=== PATIENT | male | born 1950 | race Caucasian/White ===

== ENCOUNTER → 2016-07-19 | Outpatient (CLI) | payer OTHER | END | disposition home or self-care (01) | LOC: PCVCCLINIC 14:30 | PROVIDERS: ATTEND Internal Medicine | DX: I48.91 Unspecified atrial fibrillation (principal) | CPT/HCPCS: 36415 ==

== ENCOUNTER → 2017-07-13 | Outpatient (CLI) | payer OTHER ==
--- NOTE | 2017-07-14 09:50 | PCVCIMAG ---
APPROVED REPORT Study performed: 07/13/2017 11:30:18 EXAM: Comprehensive 2D, Doppler, and color-flow Echocardiogram Patient Location: Echo lab Room #: 2Status: routine BSA: 2.57 HR: 65 bpmBP: 126/66 mmHg Rhythm: Atrial Fibrillation Other Information Study Quality: Adequate Risk Factors: Cardiac Risk Factors: Hyperlipidemia Indications Congestive Heart Failure Atrial Fibrillation Cardiomyopathy 2D Dimensions LVEF(%): 52.27 (>50%) IVSd: 9.70 (7-11mm)LVOT Diam: 23.78 (18-24mm) LVDd: 52.83 mm PWd: 9.61 (7-11mm)Ascending Ao: 32.00 (22-36mm) LVDs: 38.55 (25-40mm) Left Atrium: 47.74 (27-40mm) Aortic Root: 23.06 mm LV Single Plane 4CH: 69.22 % LV Single Plane 2CH: 57.93 %Valdez's LVEF: 63.58 % Biplane EF: 62.8 % Volumes Left Atrial Volume (Systole) Single Plane 4CH: 63.92 mLSingle Plane 2CH: 95.13 mL Biplane LA Volume: 82.00 mLLA ESV Index: 32.00 mL/m2 Aortic Valve AoV Peak Alfonso.: 1.66 m/s AO Peak Gr.: 12.74 mmHgLVOT Max P.76 mmHg LVOT Max V: 0.92 m/s CORRINE Vmax: 2.45 cm2 Mitral Valve MV E Max Alfonso.: 1.21 m/s MV PHT: 42.10 ms MVA (PHT): 5.23 cm2 Pulmonary Valve PV Peak Alfonso.: 0.77 m/sPV Peak Gr.: 2.35 mmHg Pulmonary Vein P Vein S: 0.18 m/s Tricuspid Valve TR Peak Alfonso.: 2.50 m/s TR Peak Gr.: 25.05 mmHg TV Vmax: 0.70 m/sPA Pressure: 32.00 mmHg Left Ventricle The left ventricle is normal size. There is normal LV segmental wall motion. Borderline concentric left ventricular hypertrophy. Left ventricular systolic function is normal. LVEF is 60-65%. This study is not technically sufficient to allow evaluation of the LV diastolic function due to atrial fibrillation. Right Ventricle The right ventricle is normal size. The right ventricular systolic function is normal. Atria Left atrium is at the upper limits of normal. The right atrium size is normal. Aortic Valve Aortic valve is trileaflet. Aortic valve leaflets are sclerotic but open well. No aortic regurgitation is present. There is no aortic valvular stenosis. Mitral Valve The mitral valve is normal in structure. Mild to moderate mitral regurgitation. No evidence of mitral valve stenosis. Tricuspid Valve The tricuspid valve is normal in structure. Mild tricuspid regurgitation with a PA pressure of 32 mmHg. Mild pulmonary hypertension. Pulmonic Valve The pulmonary valve is normal in structure. There is no pulmonic valvular regurgitation. Great Vessels The aortic root is normal in size. The ascending aorta is normal in size. IVC is normal in size and collapses with >50% inspiration Pericardium There is no pericardial effusion. There is no pleural effusion. <Conclusion> The left ventricle is normal size. LVEF is 60-65%. Left atrium is at the upper limits of normal. Aortic valve is trileaflet. Aortic valve leaflets are sclerotic but open well. No aortic regurgitation is present. The mitral valve is normal in structure. Mild to moderate mitral regurgitation. The tricuspid valve is normal in structure. Mild tricuspid regurgitation with a PA pressure of 32 mmHg. Mild pulmonary hypertension. There is no pericardial effusion. There is no pleural effusion.
== END | disposition home or self-care (01) ==
LOC: PCVCIMAG 11:54
PROVIDERS: ATTEND Internal Medicine
DX: I50.9 Heart failure, unspecified (principal); I08.1 Rheumatic disorders of both mitral and tricuspid valves; I48.91 Unspecified atrial fibrillation; I42.9 Cardiomyopathy, unspecified; E78.5 Hyperlipidemia, unspecified; I27.20 Pulmonary hypertension, unspecified
CPT/HCPCS: 93306

== ENCOUNTER → 2018-06-04 | Outpatient (CLI) | payer OTHER | END | disposition home or self-care (01) | LOC: PCVCCLINIC 11:22 | PROVIDERS: ATTEND Internal Medicine | DX: E78.5 Hyperlipidemia, unspecified (principal); I48.91 Unspecified atrial fibrillation; I42.9 Cardiomyopathy, unspecified; F17.210 Nicotine dependence, cigarettes, uncomplicated; Z88.8 Allergy status to other drugs, medicaments and biological substances | CPT/HCPCS: 80061 ==

== ENCOUNTER → 2018-06-05 | Outpatient (CLI) | payer OTHER ==
--- NOTE | 2018-06-05 14:39 | PCVCIMAG ---
APPROVED REPORT Study performed: 06/05/2018 08:21:17 EXAM: Comprehensive 2D, Doppler, and color-flow Echocardiogram Patient Location: Echo lab Room #: 2Status: routine BSA: 2.57 HR: 74 bpmBP: 110/70 mmHg Rhythm: Atrial Fibrillation Other Information Study Quality: Good Risk Factors: Cardiac Risk Factors: Hyperlipidemia, Smoking Indications Atrial Fibrillation Cardiomyopathy 2D Dimensions IVSd: 8.99 (7-11mm)LVOT Diam: 23.83 (18-24mm) LVDd: 45.54 mm PWd: 8.23 (7-11mm)Ascending Ao: 34.52 (22-36mm) LVDs: 27.44 (25-40mm) Left Atrium: 39.01 (27-40mm) Aortic Root: 27.10 mm LV Single Plane 4CH: 55.96 % LV Single Plane 2CH: 54.41 % Biplane EF: 55.5 % Volumes Left Atrial Volume (Systole) Single Plane 4CH: 85.86 mLSingle Plane 2CH: 93.59 mL Biplane LA Volume: 91.00 mLLA ESV Index: 35.00 mL/m2 Aortic Valve AoV Peak Alfonso.: 1.53 m/s AO Peak Gr.: 10.28 mmHgLVOT Max P.00 mmHg LVOT Max V: 0.87 m/s CORRINE Vmax: 2.55 cm2 Mitral Valve MV E Max Alfonso.: 1.35 m/s MV PHT: 56.27 ms MVA (PHT): 3.91 cm2 TDI E/Lateral E': 9.64E/Medial E': 13.50 Medial E' Alfonso.: 0.10 m/s Lateral E' Alfonso.: 0.14 m/s Pulmonary Valve PV Peak Alfonso.: 0.77 m/sPV Peak Gr.: 2.38 mmHg Tricuspid Valve TR Peak Alfonso.: 2.79 m/s TR Peak Gr.: 31.22 mmHg TV Vmax: 0.61 m/sPA Pressure: 38.00 mmHg Left Ventricle The left ventricle is normal size. There is normal LV segmental wall motion. There is normal left ventricular wall thickness. Left ventricular systolic function is normal. The left ventricular ejection fraction is within the normal range. LVEF is 55%. This study is not technically sufficient to allow evaluation of the LV diastolic function due to atrial fibrillation. Right Ventricle The right ventricle is normal size. The right ventricular systolic function is normal. Atria Left atrium is mildly dilated. The right atrium size is normal. Aortic Valve Aortic valve is trileaflet. Aortic valve is mildly calcified with minimal reduction in leaflet excursion. No aortic regurgitation is present. There is no aortic valvular stenosis. Mitral Valve The mitral valve is normal in structure. Mitral regurgitation jet is eccentrically directed. Moderate mitral regurgitation. No evidence of mitral valve stenosis. Tricuspid Valve The tricuspid valve is normal in structure. Mild tricuspid regurgitation with a PA pressure of 38 mmHg. Mild pulmonary hypertension. Pulmonic Valve The pulmonary valve is normal in structure. Trace to mild pulmonic regurgitation. Great Vessels The aortic root is normal in size. The ascending aorta is normal in size. Aortic arch is normal in caliber. IVC is normal in size and collapses >50% with inspiration. Pericardium There is no pericardial effusion. There is no pleural effusion. <Conclusion> The left ventricle is normal size. LVEF is 55%. Left atrium is mildly dilated. Aortic valve is trileaflet. Aortic valve is mildly calcified with minimal reduction in leaflet excursion. No aortic regurgitation is present. There is no aortic valvular stenosis. The mitral valve is normal in structure. Mitral regurgitation jet is eccentrically directed. Moderate mitral regurgitation. The tricuspid valve is normal in structure. Mild tricuspid regurgitation with a PA pressure of 38 mmHg. Mild pulmonary hypertension. The pulmonary valve is normal in structure. Trace to mild pulmonic regurgitation. There is no pericardial effusion. There is no pleural effusion.
== END | disposition home or self-care (01) ==
LOC: PCVCIMAG 08:24
PROVIDERS: ATTEND Internal Medicine
DX: I08.1 Rheumatic disorders of both mitral and tricuspid valves (principal); I48.91 Unspecified atrial fibrillation; I42.9 Cardiomyopathy, unspecified; E78.5 Hyperlipidemia, unspecified; R79.89 Other specified abnormal findings of blood chemistry; I50.20 Unspecified systolic (congestive) heart failure; F17.200 Nicotine dependence, unspecified, uncomplicated; I27.20 Pulmonary hypertension, unspecified
CPT/HCPCS: 93306

== ENCOUNTER → 2019-01-10 | Outpatient (CLI) | payer OTHER | END | disposition home or self-care (01) | LOC: PCVCCLINIC 11:00 | PROVIDERS: ATTEND Internal Medicine | DX: I11.0 Hypertensive heart disease with heart failure (principal); I50.20 Unspecified systolic (congestive) heart failure; I48.0 Paroxysmal atrial fibrillation; I25.5 Ischemic cardiomyopathy; E78.5 Hyperlipidemia, unspecified; F17.210 Nicotine dependence, cigarettes, uncomplicated | CPT/HCPCS: 93005; G0463 ==

== ENCOUNTER → 2019-02-14 | Outpatient (CLI) | payer OTHER ==
--- NOTE | 2019-02-14 16:06 | PCVCIMAG ---
EXAM: BILATERAL LOWER EXTREMITY ARTERIAL DUPLEX INDICATION: Peripheral Arterial Disease. Leg pain. Nonhealing ulcer medial left ankle. FINDINGS: Right Leg: Common femoral and profunda femoral arteries are patent. Superficial femoral and popliteal artery are patent. 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 The peroneal and posterior tibial arteries are patent. Left Leg: Common femoral and profunda femoral arteries are patent. Increased systolic velocity 318 cm/s mid/distal [place] superficial femoral artery consistent with 80% stenosis. The popliteal artery is patent. The anterior tibial, peroneal, and posterior tibial arteries are patent. 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 Otherwise no flow limiting stenosis in the right lower extremity. 80% stenosis mid/distal [place] left superficial femoral artery. LOC:[id number]
== END | disposition home or self-care (01) ==
LOC: PCVCIMAG 14:27
PROVIDERS: ATTEND Emergency Medicine
DX: I73.9 Peripheral vascular disease, unspecified (principal); F17.200 Nicotine dependence, unspecified, uncomplicated; Z88.8 Allergy status to other drugs, medicaments and biological substances
CPT/HCPCS: 93925

== ENCOUNTER → 2019-04-25 | Outpatient (CLI) | payer OTHER ==
--- NOTE | 2019-04-25 11:33 | PCVCIMAG ---
EXAM: BILATERAL CAROTID DUPLEX INDICATION: Carotid Occlusive Disease. FINDINGS: Doppler Measurements (centimeters per second): RIGHT: Peak CCA-55, Peak ECA-90, Diastolic ICA-21, Peak ICA-71, ICA/CCA Ratio-1.3. LEFT: Peak CCA-94, Peak ECA-66, Diastolic ICA-29, Peak ICA-95, ICA/CCA Ratio-1.0. RIGHT CAROTID: The carotid bulb has moderate plaque. The proximal internal carotid artery shows <40% stenosis. The common carotid artery shows no significant stenosis. The external carotid artery shows no significant stenosis. LEFT CAROTID: The carotid bulb has moderate plaque. The proximal internal carotid artery shows <40% stenosis. The common carotid artery shows no significant stenosis. The external carotid artery shows no significant stenosis. Antegrade flow in both vertebral arteries. IMPRESSION: <40% stenosis of the right internal carotid artery with moderate plaque. <40% stenosis of the left internal carotid artery with moderate plaque. LOC:[id number]
--- NOTE | 2019-04-25 11:49 | PCVCIMAG ---
EXAM: LEFT LOWER EXTREMITY ARTERIAL DUPLEX INDICATION: Peripheral Arterial Disease. Leg pain. FINDINGS: Left Leg: Common femoral and profunda femoral arteries are patent. Superficial femoral artery and popliteal artery are patent. The anterior tibial, peroneal, and posterior tibial arteries are patent. IMPRESSION: No flow limiting stenosis in the left lower extremity. Previous left superficial femoral artery stent maintaining good patency. LOC:[id number]
== END | disposition home or self-care (01) ==
LOC: PCVCIMAG 10:37
PROVIDERS: ATTEND Nuclear Medicine Nuclear Cardiology
DX: I65.23 Occlusion and stenosis of bilateral carotid arteries (principal); F17.200 Nicotine dependence, unspecified, uncomplicated; I73.9 Peripheral vascular disease, unspecified; I71.4 Abdominal aortic aneurysm, without rupture; I48.0 Paroxysmal atrial fibrillation; Z88.8 Allergy status to other drugs, medicaments and biological substances; Z79.899 Other long term (current) drug therapy
CPT/HCPCS: 93880; 93926